=== PATIENT | male | born 1980 | race African-American/Black ===

== ENCOUNTER 2017-06-08 17:24 | Emergency (ER) | payer MEDICARE, OTHER ==
[~2017-06-08] VITALS: Ht 175.3 cm; Wt 54.4 kg
[~2017-06-08 17:24] MED LIST: CEPH-264 PO
[2017-06-08] MEDS ORDERED: SULF1TAB24 PO (18:37)
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
[2017-06-08 18:59] VITALS: BP 154/73
== END 2017-06-08 19:09 | disposition home or self-care (01) ==
LOC: ER 17:24
DX: L03.311 Cellulitis of abdominal wall (principal); F12.10 Cannabis abuse, uncomplicated
CPT/HCPCS: 99281; 99284